=== PATIENT | male | born 1985 | race Two or more races ===

== ENCOUNTER 2018-12-26 17:03 | Emergency (ER) | payer BC, MEDICAID ==
[~2018-12-26] VITALS: Ht 167.6 cm; Wt 83.9 kg
--- NOTE | 2018-12-26 17:18 | NUR ---
PT A/OX4, PRESENTS TO THE ER C/O EPIGASTRIC PAIN X 2 WEEKS. PT STATES HE "COULDN'T TAKE THE PAIN ANYMORE". EPIGASTRIC PAIN IS NON-PROVOKED, DULL IN QUALITY, DOES NOT RADIATE, 8/10, CONSTANT. 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 PT DENIES SOB, N/V/D, DIZZINESS, HEADACHE.
--- NOTE | 2018-12-26 17:29 | NUR ---
KJ VEE AT BEDSIDE FOR MSE.
[2018-12-26] MEDS ORDERED: MAG HYDROX/AL HYDROX/SIMETH 30 ML LIQUID UDC ONE (17:44)
[2018-12-26] MEDS ORDERED: LORAZEPAM 1 MG TABLET ONE (17:44)
[2018-12-26] MEDS ORDERED: DICYCLOMINE HCL LIQ 10 MG/5 ML UDC ONE (17:44)
[2018-12-26] MEDS ORDERED: LORAZEPAM 0.5 MG TABLET PO ONE (17:45)
[2018-12-26] MEDS ORDERED: DICYCLOMINE HCL LIQ 10 MG/5 ML UDC PO ONE (17:45)
[2018-12-26] MEDS ORDERED: MAG HYDROX/AL HYDROX/SIMETH 30 ML LIQUID UDC PO ONE (17:45)
--- NOTE | 2018-12-26 18:07 | NUR ---
Patient discharged to home in stable conditon. Written and verbal after care instructions given. Patient verbalizes understanding of instructions. Pt ambulated out of ER in steady gait with cousin who will drive home. All belongings with pt. VSS. NAD noted. Pt states he has no more pain.
[2018-12-26 18:08] VITALS: BP 122/71
== END 2018-12-26 18:09 | disposition home or self-care (01) ==
LOC: ER 17:05
DX: K21.9 Gastro-esophageal reflux disease without esophagitis (principal); F15.10 Other stimulant abuse, uncomplicated; F11.10 Opioid abuse, uncomplicated
CPT/HCPCS: 93005; A4663